=== PATIENT | male | born 1995 | race African-American/Black ===

== ENCOUNTER 2024-03-22 19:47 | Emergency (ER) | payer MEDICAID, OTHER ==
[~2024-03-22] VITALS: Ht 177.8 cm; Wt 82.0 kg
[2024-03-22 19:50] VITALS: BP 214/125; PULSE 102; RESP 18; TEMP 98.2; O2SAT 100
[2024-03-22] MEDS ORDERED: HYDROCODONE/ACETAMINOPHEN 5/325MG TABLET PO ONE (20:45)
== END 2024-03-22 20:35 | disposition left against medical advice (07) ==
LOC: ER 19:47
DX: E11.649 Type 2 diabetes mellitus with hypoglycemia without coma (principal); I12.0 Hypertensive chronic kidney disease with stage 5 chronic kidney disease or end stage renal disease; E11.22 Type 2 diabetes mellitus with diabetic chronic kidney disease; N18.6 End stage renal disease; Z99.2 Dependence on renal dialysis
CPT/HCPCS: 82962; 99283